=== PATIENT | female | born 1955 | race Caucasian/White ===

== ENCOUNTER 2016-10-15 16:02 | Outpatient (CLI) | payer MEDICARE | END 2016-10-15 16:03 | LOC: HPCALD 16:02 | PROVIDERS: ATTEND Family Medicine | DX: R41.3 Other amnesia (principal) | CPT/HCPCS: 36415; 82607; 86592 ==

== ENCOUNTER 2017-02-12 14:15 | Outpatient (CLI) | payer MEDICARE ==
--- NOTE | 2017-02-12 20:41 | RAD ---
LUMBAR SPINE THREE VIEWS 02/12/1717 Grade I spondylolisthesis of L4 on L5 and to a lesser extent L5 on S1 can be seen. These are both du e to very severe facet arthritis at the lower two levels. There may be some minimal disc space narro wing at L4-L5. No fracture or area of bony destruction was see in any of the vertebrae. There is pro bably an old Schmorl's node in the superior end plate of T12. The SI joints are symmetrical. 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 IMPRESSION: Mild spondylolisthesis in the lower two levels secondary to quite severe facet arthritis. MRI would be needed to assess the possibility of neural impingement. POS: HOME
== END 2017-02-12 14:16 | disposition home or self-care (01) ==
LOC: BURRAD 14:15
PROVIDERS: ATTEND Family Medicine
DX: M53.3 Sacrococcygeal disorders, not elsewhere classified (principal); M43.16 Spondylolisthesis, lumbar region
CPT/HCPCS: 72100